=== PATIENT | female | born 1955 | race African-American/Black ===

== ENCOUNTER 2016-07-09 17:57 | Observation (INO) | payer OTHER ==
--- NOTE | ~2016-07-09 | HP ---
Unit #: [id number] #: [id number] Patient: GLORY MAY [id number] [address] [place], [place] [address] [id number] MR#: [id number] NAME: GLORY MAY ROOM: Age: 61 Sex: F Admission Date: 07/09/2016 : 1955 Attending Physician: Krista Dockery M.D. HISTORY AND PHYSICAL CHIEF COMPLAINT Influenza with asthma exacerbation and respiratory failure. HISTORY OF PRESENT ILLNESS This 61-year-old female with hypertension, asthma, and sarcoidosis, is admitted for influenza. The patient was in her usual state of health until two weeks prior to admission when she developed a deep cough productive of some off-white/yellowish sputum with fevers, myalgias, shortness of breath, and mild wheezing. She presented to this emergency department where her influenza swab is positive. She had received influenza vaccine in February. She was noted in the ER to have intermittent low O2 saturations. She was treated with Tylenol, Tamiflu, and potassium in the ER. Although she takes Coumadin, her INR is subtherapeutic. PAST MEDICAL HISTORY 1. Admission March 18, 2016, for bowel obstruction requiring exploratory laparotomy. Patient later developed acute hypoxic respiratory failure and was diagnosed with postop PE and was placed on Coumadin. 2. Hypertension. 3. Asthma. 4. Chronic low back pain. 5. Scoliosis. 6. Degenerative joint disease. 7. Sarcoidosis. 8. Bilateral rotator cuff repair. 9. Left foot surgery. 10. Dilatation and curettage. ALLERGIES PENICILLIN AND NONSTEROIDAL ANTIINFLAMMATORY DRUGS. HOME MEDICATIONS Patient states that she takes Coumadin 7.5 mg daily, aspirin 81 mg 2 tablets daily, and two blood pressure medicines of unknown name. FAMILY HISTORY Hypertension, CAD, diabetes mellitus, and asthma. SOCIAL HISTORY The patient lives alone. She is a lifelong nonsmoker and does not drink alcohol. Unit #: [id number] #: [id number] Patient: GLORY MAY REVIEW OF SYSTEMS Notable for shortness of breath, wheezing, productive cough, myalgias, fever, hypertension, sarcoidosis, chronic back pain, and above-mentioned surgeries. All other systems were reviewed and are otherwise negative. PHYSICAL EXAMINATION GENERAL: A pleasant 61-year-old female currently in no acute distress. VITAL SIGNS: Temperature 100, pulse 83, respirations 15, blood pressure 183/81, and O2 saturation is 99% on room air. HEENT: Eyes PERRLA. Extraocular muscles are intact. Pharynx is benign. NECK: Supple without adenopathy or thyromegaly. CHEST: Mild expiratory wheeze. CARDIAC: Normal S1 and S2 without S3, S4, or murmur. ABDOMEN: Bowel sounds are present. No hepatosplenomegaly, tenderness, or masses. EXTREMITIES: Without clubbing, cyanosis, or edema. Pedal pulses are present. NEUROLOGIC: Patient is awake, alert, and oriented. Cranial nerves are intact. Equal strength throughout. DIAGNOSTIC STUDIES ADMISSION LABORATORY: Hematocrit is 40.4 with normal white count and platelet count. SMA-12 with sodium 133 and potassium is 3. Lactic acid normal. Cardiac markers are negative. Flu serology influenza A positive. IMAGING: Chest x-ray shows chronic interstitial lung disease but no acute disease. CARDIOLOGY: EKG normal sinus rhythm, rate 83, and nonspecific ST wave abnormalities. ASSESSMENT 1. Influenza with asthma exacerbation and acute hypoxic respiratory failure. 2. Hypertension. 3. Postoperative pulmonary embolus February 2016 with subtherapeutic INR. Questionable compliance with Coumadin. 4. Sarcoidosis. 5. Hypokalemia treated in the emergency room. PLANS 1. Tamiflu. 2. Albuterol and mucolytics. 3. Verify home medicines. 1. Dictated by Trini Luz M.D. AML/am TD: 07/09/2016 22:04 JOB #: [id number] CC: Servando Brooke M.D. Unit #: [id number] #: [id number] Patient: GLORY MAY HISTORY AND PHYSICAL Page 1 of 1 X Trini Luz MD HISTORY AND PHYSICAL
--- NOTE | ~2016-07-09 | DS ---
Unit #: [id number] #: [id number] Patient: GLORY JOHNSON [id number] [address] [address] [id number] I MR#: [id number] NAME: GLORY JOHNSON ROOM: 319 Age: 61 Sex: F Admission Date: 07/09/2016 : 1955 Discharge Date: 07/10/2016 Attending Physician: Yoli Woods M.D. DISCHARGE SUMMARY PRIMARY CARE PROVIDER Unknown. PRINCIPAL DIAGNOSES 1. Acute hypoxic respiratory failure secondary to #2. 2. Acute influenza A. 3. Mild acute asthma exacerbation. 4. Hypokalemia. 5. Sarcoidosis. 6. Hypertension. 7. Prior history of pulmonary embolism with subtherapeutic Coumadin. CONSULTANTS None. PROCEDURES 1. CT angiogram of the chest on 07/10/2016, which was negative for PE. Changes of sarcoidosis were noted and reticulonodular infiltrates consistent with influenza noted. 2. Chest x-ray on 07/09/2016 with chronic interstitial lung disease. CLINICAL HISTORY AND HOSPITAL COURSE Ms Johnson is a nice 61-year-old female, who presents to the emergency department with increasing shortness of breath and cough. This is associated with fever, myalgias, and nausea in addition to diarrhea. Please refer to H and P for further details. The patient was found to be influenza positive in the emergency department. Upon presentation, oxygen saturations were normal at 99% on room air. However, during evaluation in the ER, the patient's O2 sats occasionally dropped and that she was placed in observation for evaluation. The patient was started on Tamiflu and today I am awaiting ambulating, oxygen saturations, but she appears comfortable on room air. She does have a mild amount of wheezing and thus I am going to give a dose of Solu-Medrol prior to discharge and quick tapering oral dose of prednisone. I will note that the patient's INR is significantly low at 1.1 and I am question whether she has been compliant with her Coumadin. Her PE was in 02/2016 and she should still be on Coumadin for at least another month, but perhaps will not require it after that timeframe given this appears to be a provoked DVT. We will place her back on her home dose, she needs close followup of her INR. Unit #: [id number] #: [id number] Patient: GLORY JOHNSON DISCHARGE CONDITION Stable. DISCHARGE STATUS Discharged to home. DISCHARGE MEDICATIONS Tamiflu 75 mg p.o. b.i.d. for another 4 days, Medrol Dosepak to be taken as directed #21 pills, albuterol sulfate nebulizer solution q.i.d., Coumadin 7.5 mg which is home dose, Coreg 6.25 mg b.i.d., Humibid LA 600 mg p.o. b.i.d. for 10 days, Lipitor 40 mg at bedtime. DISCHARGE INSTRUCTIONS The patient was instructed to follow regular diet. She can increase her activity as tolerated. FOLLOWUP The patient needs INR done on 07/15/2016 to ensure goal INR 2 to 3. She can follow up with her primary care physician in approximately 1 week as well. Dictated by... Yoli Woods M.D. UMER/samuel TD: 07/11/2016 04:02 JOB #: [id number] DISCHARGE SUMMARY Page 1 of 1 X Yoli Woods MD X DISCHARGE SUMMARY
--- NOTE | ~2016-07-09 | CT16 ---
[facility] A Service of [facility] & [facility] RADIOLOGY TEXT RESULTS PATIENT: GLORY MAY LOCATION: C3A 319-01 : 51 UNIT #: [id number] AGE: [address]: Yoli Woods MD SEX: F ORDER DR: [id number] [facility] [address] [facility]. [place], [place] [address] [id number] I MR#: [id number] Acc #: [id number] NAME: GLORY MAY : 1955 SEX: F STUDY DATE/TIME: 07/10/2016 8:35 UNIT: A PCU ROOM: 319 STUDY DESCRIPTION: CT Angio Chest for PE Attending Physician: Yoli Woods M.D. Ordering Physician: Trini Luz M.D. Primary Care Physician: No Primary Care Physician MEDICAL IMAGING REPORT This report is preliminary unless electronic signature is present EXAM CT chest PE protocol 07/10/2016 INDICATIONS 61-year female with cough, shortness of breath, congestion for 2 weeks. The patient has a history of sarcoidosis. TECHNIQUE CT scan of the chest was performed following the administration of IV contrast using the pulmonary embolism protocol. Coronal and sagittal reformatted images were obtained. This CT exam was performed with one or more of the following radiation dose reduction techniques: automatic exposure control, adjustment of mA and/or kV according to patient size, and iterative reconstruction. COMPARISON STUDIES Compared with CT of the chest from 05/29/2016. FINDINGS There is no evidence of pulmonary embolism. Stable thyroid nodule in the right. Stable mediastinal or hilar adenopathy with calcifications consistent with the patient's history of sarcoidosis. Lung mayo demonstrated improved appearance compared with the prior study. There are decreased ground-glass infiltrates. There is persistent interstitial thickening and some nodularity. This likely reflects sequelae of sarcoidosis given the patient's history. An infectious process could also have this appearance. Stable lingular and right middle lobe scarring. No dense consolidation. Limited imaging of the upper abdomen demonstrates stable cysts in the liver. Stable prominent pancreatic duct. Bone windows demonstrate a sternal fracture again noted. There is some callus formation about the fracture but there is some widening of the fracture line. [facility]. [facility] A Service of [facility] & [facility] RADIOLOGY TEXT RESULTS PATIENT: GLORY MAY LOCATION: C3A 319-01 : 51 UNIT #: [id number] AGE: [address]: Yoli Woods MD SEX: F ORDER DR: IMPRESSION 1. No evidence of pulmonary embolism. 2. Chronic-appearing changes again noted. Stable mediastinal and hilar adenopathy with calcifications compatible patient's history of sarcoidosis. 3. Reticulonodular interstitial thickening in the upper zones again noted likely sequela of sarcoidosis. Infectious process could also have this appearance. Correlate clinically. 4. Previously noted ground-glass infiltrates in the lungs have resolved. Dictated by... Nick Ott M.D. THIS IS AN ELECTRONICALLY VERIFIED REPORT Nick Ott M.D. at 07/11/2016 8:37 AM Arya TD: 07/10/2016 14:47 JOB #: [id number] MEDICAL IMAGING REPORT Page 1 of 1 COPY
--- NOTE | ~2016-07-09 | CR72 ---
[facility] A Service of [facility] RADIOLOGY TEXT RESULTS PATIENT: GLORY MAY LOCATION: [facility] 319-01 : 53 UNIT #: [id number] AGE: [address]: Yoli Woods MD SEX: F ORDER DR: [id number] [facility] [address] [facility]. [place], [place] [address] [id number] I MR#: [id number] Acc #: [id number] NAME: GLORY MAY : 1955 SEX: F STUDY DATE/TIME: 07/09/2016 18:38 UNIT: A U ROOM: 319 STUDY DESCRIPTION: CR Chest Single View Portable Attending Physician: Yoli Woods M.D. Ordering Physician: Krista Dockery M.D. Primary Care Physician: No Primary Care Physician MEDICAL IMAGING REPORT This report is preliminary unless electronic signature is present EXAM Chest x-ray, portable, single view. HISTORY Short of air for 2 weeks with cough, vomiting, history of hypertension. COMMENT Single frontal portable view of the chest timed 18:38 on 07/09/2016 compared to 07/11/2016. There is mild cardiac silhouette enlargement. There is again abnormal thickening of the central peribronchovascular soft tissues and there is abnormal interstitial prominence and distortion of parenchymal markings in general. Changes are chronic. Please correlate for chronic lung disease history. No acute-appearing parenchymal infiltrate acute congestive failure, pleural effusion or pneumothorax. There is evidence for old granulomatous disease also. IMPRESSION Redemonstration of findings most consistent with chronic interstitial lung disease. Please correlate with history. No acute infiltrate or acute congestive failure. Cardiac silhouette is again enlarged. Dictated by... Kirsty Rivas M.D. THIS IS AN ELECTRONICALLY VERIFIED REPORT Kirsty Rivas M.D. at 07/10/2016 12:18 PM SAC/jordon TD: 07/10/2016 10:25 JOB #: [id number] [facility] A Service of [facility] RADIOLOGY TEXT RESULTS PATIENT: GLORY MAY LOCATION: C3A 319-01 : 51 UNIT #: [id number] AGE: [address]: Yoli Woods MD SEX: F ORDER DR: MEDICAL IMAGING REPORT Page 1 of 1 COPY
--- NOTE | ~2016-07-09 | EKG ---
PATIENT: GLORY MAY UNIT #: [id number] Ventricular Rate: 83 BPM Atrial Rate: 83 BPM P-R Interval: 164 ms QRS Duration: 80 ms Q-T Interval: 360 ms QTC Calculation(Bezet): 423 ms P [place]: 57 degrees Calculated R [place]: 41 degrees Calculated T [place]: 33 degrees Diagnosis Line: Sinus rhythm with Premature atrial complexes Diagnosis Line: Nonspecific ST abnormality Baseline wander Diagnosis Line: Abnormal ECG Diagnosis Line: When compared with ECG of 29-MAY-2016 14:57, Diagnosis Line: Premature atrial complexes are now Present Diagnosis Line: Confirmed by CHRISTINE HAGEN MD ([id number]) on 07/11/2016 Diagnosis Line: 9:16:14 AM INTERPRETING MD: [address]
[~2016-07-09 17:57] MED LIST: ASPIRIN81 M2 PO; BACLOFEN10 MG PO; COREG6.25 MG PO; COUMADIN5 MG PO; GABAPENTIN400 M2 PO; HYDROCODON-ACE1 EAC9 PO; LIPITOR40 MG PO; LOVENOX80 MG/0.8 INJ; NITROSTAT0.4 MG SL; NORVASC PO; TRAMADOL HCL50 M2 PO
[2016-07-09 18:29] LABS: BASOPHIL# 0.1 X10e3 (0-0.3); BASOPHIL% 0.9 % (0-2.5); EOSINOPHIL% 0.7 % (0.0-7.0); HEMATOCRIT 40.4 % (35.0-45.0); HEMOGLOBIN 13.4 gm/dL (12.0-16.0); LYMPHOCYTE# 0.7 X10e3 (1.0-3.5); LYMPHOCYTE% 10.9 % (17.0-45.0); MEAN CORPUSCULAR HEMOGLOBIN 31.3 PG (28-34); MEAN CORPUSCULAR HGB CONC 33.3 g/dL (30-36); MEAN PLATELET VOLUME 9.5 FL (6.5-11.5); MONOCYTE# 0.6 X10e3 (0-1.0); MONOCYTE% 9.7 % (3.0-12.0); NEUTROPHIL# 4.9 X10e3 (1.5-7.1); NEUTROPHIL% 77.8 % (40-75); PLATELET COUNT 177 X10e3 (140-420); RED CELL DISTRIBUTION WIDTH 14.2 % (11.0-15.5); WHITE BLOOD COUNT 6.3 X10e3 (4.0-10.5)
[2016-07-09 18:32] LABS: DIFF IND NO
[2016-07-09 18:33] LABS: INFLUENZA A POS (NEG); INFLUENZA B NEG (NEG)
[2016-07-09 18:42] LABS: INR 1.1; PARTIAL THROMBOPLASTIN TIME 25.7 SECONDS (23.5-31.3); PROTHROMBIN TIME (PATIENT) 11.4 SECONDS (9.6-11.5)
[2016-07-09 19:52] LABS: POC - CKMB 1.5 ng/mL (0.0-7.9); POC - TROPONIN <0.05 ng/mL (<=0.05)
[2016-07-09 20:11] LABS: ALBUMIN SERUM 3.6 g/dL (3.5-5.0); ALKALINE PHOSPHATASE 83 U/L (32-92); ALT (SGPT) 13 U/L (10-40); AST (SGOT) 23 U/L (10-42); BILIRUBIN, DIRECT 0.1 mg/dL (0.0-0.2); BILIRUBIN,INDIRECT 0.6 mg/dL (0.0-0.9); BILIRUBIN,TOTAL 0.7 mg/dL (0.2-2.0); BLOOD UREA NITROGEN 16 mg/dL (9-23); BUN/CREATININE RATIO 22.85; CALCIUM SERUM 8.5 mg/dL (8.4-10.2); CARBON DIOXIDE 23 mmol/L (22-31); CHLORIDE 101 mmol/L (100-111); CREATININE SERUM 0.7 mg/dL (0.6-1.4); GLOM FILT RATE Estimated ABOVE60 mL/min (>60); GLUCOSE FASTING 98 mg/dL (70-110); PROTEIN TOTAL SERUM 6.6 g/dL (6.0-8.3); SODIUM 133 mmol/L (135-145)
[2016-07-10] MEDS ORDERED: LIPITOR40 MG PO (02:01)
[2016-07-10] MEDS ORDERED: ALBUTEROL MININEB NEB (02:06)
[2016-07-10] MEDS ORDERED: COREG6.25 MG PO (02:08)
[2016-07-10 06:36] LABS: BASOPHIL# 0.1 X10e3 (0-0.3); EOSINOPHIL# 0.1 X10e3 (0-0.7); EOSINOPHIL% 1.5 % (0.0-7.0); HEMOGLOBIN 13.5 gm/dL (12.0-16.0); LYMPHOCYTE# 0.7 X10e3 (1.0-3.5); LYMPHOCYTE% 13.7 % (17.0-45.0); MEAN CELL VOLUME 93.1 FL (83-96); MEAN CORPUSCULAR HEMOGLOBIN 29.9 PG (28-34); MEAN CORPUSCULAR HGB CONC 32.2 g/dL (30-36); MEAN PLATELET VOLUME 8.7 FL (6.5-11.5); MONOCYTE# 0.5 X10e3 (0-1.0); MONOCYTE% 9.9 % (3.0-12.0); NEUTROPHIL# 3.9 X10e3 (1.5-7.1); NEUTROPHIL% 73.9 % (40-75); PLATELET COUNT 149 X10e3 (140-420); RED BLOOD COUNT 4.51 X10e (3.90-5.30); RED CELL DISTRIBUTION WIDTH 14.2 % (11.0-15.5); WHITE BLOOD COUNT 5.3 X10e3 (4.0-10.5)
[2016-07-10 06:39] LABS: DIFF IND NO
[2016-07-10 06:45] LABS: INR 1.1; PROTHROMBIN TIME (PATIENT) 11.4 SECONDS (9.6-11.5)
[2016-07-10 07:04] LABS: BLOOD UREA NITROGEN 13 mg/dL (9-23); BUN/CREATININE RATIO 14.44; CALCIUM SERUM 8.9 mg/dL (8.4-10.2); CARBON DIOXIDE 25 mmol/L (22-31); CHLORIDE 107 mmol/L (100-111); CREATININE SERUM 0.9 mg/dL (0.6-1.4); GLOM FILT RATE Estimated ABOVE60 mL/min (>60); GLUCOSE FASTING 69 mg/dL (70-110); POTASSIUM 3.7 mmol/L (3.5-5.1); SODIUM 139 mmol/L (135-145)
[2016-07-10] MEDS ORDERED: WARFARIN SODIU7.5 MG PO (13:18)
[2016-07-10] MEDS ORDERED: TAMIFLU75 M1 PO (13:19)
[2016-07-10] MEDS ORDERED: GUAIFENESIN600 M1 PO (13:20)
[2016-07-10] MEDS ORDERED: MEDROL DOSEPAK4 MG PO (13:21)
== END 2016-07-10 14:46 | disposition home or self-care (01) | DRG 193 ==
LOC: CED 17:57 → CEDOF 21:30 → C3A PCU 23:59
PROVIDERS: Emergency Medicine; Internal Medicine
DX: J10.1 Influenza due to other identified influenza virus with other respiratory manifestations (principal); J96.01 Acute respiratory failure with hypoxia; J45.901 Unspecified asthma with (acute) exacerbation; E87.6 Hypokalemia; D86.9 Sarcoidosis, unspecified; I10 Essential (primary) hypertension; Z23 Encounter for immunization; Z86.711 Personal history of pulmonary embolism; Z79.01 Long term (current) use of anticoagulants; Z88.0 Allergy status to penicillin; Z88.6 Allergy status to analgesic agent; Z82.49 Family history of ischemic heart disease and other diseases of the circulatory system; Z83.3 Family history of diabetes mellitus; Z82.5 Family history of asthma and other chronic lower respiratory diseases; Z79.82 Long term (current) use of aspirin
CPT/HCPCS: 36415; 71010; 71275; 80048; 80076; 82553; 83605; 83735; 84484; 85025; 85610; 85730; 87040; 87804; 90732; 93005; 99285; G0009; G0378; Q9967

== ENCOUNTER 2016-09-04 17:18 | Emergency (ER) | payer OTHER ==
[~2016-09-04 17:18] MED LIST changes: +ALBUTEROL MININEB NEB; +GUAIFENESIN600 M1 PO; +MEDROL DOSEPAK4 MG PO; +TAMIFLU75 M1 PO; +WARFARIN SODIU7.5 MG PO
== END 2016-09-04 18:44 | disposition home or self-care (01) ==
LOC: CED 17:18 → CFTX 17:18
DX: S40.811A Abrasion of right upper arm, initial encounter (principal); G89.29 Other chronic pain; I10 Essential (primary) hypertension; E78.5 Hyperlipidemia, unspecified; J45.909 Unspecified asthma, uncomplicated; M54.9 Dorsalgia, unspecified; Z88.0 Allergy status to penicillin; Z88.1 Allergy status to other antibiotic agents; X58.XXXA Exposure to other specified factors, initial encounter; Y92.009 Unspecified place in unspecified non-institutional (private) residence as the place of occurrence of the external cause
CPT/HCPCS: 99283

== ENCOUNTER 2016-10-13 07:45 | Emergency (ER) | payer OTHER ==
--- NOTE | ~2016-10-13 | EKG ---
PATIENT: GLORY MAY UNIT #: [id number] Ventricular Rate: 64 BPM Atrial Rate: 64 BPM P-R Interval: 186 ms QRS Duration: 80 ms Q-T Interval: 450 ms QTC Calculation(Bezet): 464 ms P [place]: 71 degrees Calculated R [place]: 34 degrees Calculated T [place]: 48 degrees Diagnosis Line: Sinus rhythm with Premature atrial complexes Diagnosis Line: Otherwise normal ECG Diagnosis Line: When compared with ECG of 09-JUL-2016 18:07, Diagnosis Line: No significant change was found Diagnosis Line: Confirmed by OKSANA QUEEN MD ([id number]) on Diagnosis Line: 10/13/2016 10:49:13 PM INTERPRETING MD: BERTHA
--- NOTE | ~2016-10-13 | CR72 ---
[facility] A Service of [facility] & [facility] RADIOLOGY TEXT RESULTS PATIENT: GLORY MAY LOCATION: [facility] : 51 UNIT #: [id number] AGE: [address]: Neeraj Silva MD SEX: F ORDER DR: [id number] [facility] [address] [place], [place] [address] [id number] E MR#: [id number] Acc #: [id number] NAME: GLORY MAY : 1955 SEX: F STUDY DATE/TIME: 10/13/2016 8:07 UNIT: [facility] ROOM: STUDY DESCRIPTION: CR Chest Single View Portable Attending Physician: Neeraj Silva M.D. Ordering Physician: Neeraj Silva M.D. Primary Care Physician: No Primary Care Physician MEDICAL IMAGING REPORT This report is preliminary unless electronic signature is present EXAM Portable chest 10/13/2016 HISTORY Cough, chest congestion and shortness of breath for 3 days. Benign essential hypertension, asthma. FINDINGS The heart is enlarged but stable compared with 07/09/2016. There are interstitial infiltrates more prominent at the lung bases probably representing mild pulmonary edema. No airspace consolidation is seen. Small left pleural effusion. No pneumothorax. IMPRESSION Cardiomegaly and mild pulmonary edema. Small left pleural effusion. Dictated by... Jaun Koch M.D. THIS IS AN ELECTRONICALLY VERIFIED REPORT Jaun Koch M.D. at 10/14/2016 8:05 AM DON/maria TD: 10/13/2016 10:08 JOB #: [id number] MEDICAL IMAGING REPORT Page 1 of 1 COPY
[2016-10-13 08:46] LABS: BASOPHIL% 1.1 % (0-2.5); EOSINOPHIL# 0.2 X10e3 (0-0.7); EOSINOPHIL% 5.5 % (0.0-7.0); HEMATOCRIT 36.1 % (35.0-45.0); LYMPHOCYTE% 24.3 % (17.0-45.0); MEAN CELL VOLUME 91.4 FL (83-96); MEAN CORPUSCULAR HEMOGLOBIN 30.4 PG (28-34); MEAN CORPUSCULAR HGB CONC 33.2 g/dL (30-36); MEAN PLATELET VOLUME 9.4 FL (6.5-11.5); MONOCYTE# 0.7 X10e3 (0-1.0); MONOCYTE% 16.1 % (3.0-12.0); NEUTROPHIL# 2.2 X10e3 (1.5-7.1); PLATELET COUNT 160 X10e3 (140-420); RED BLOOD COUNT 3.95 X10e (3.90-5.30); RED CELL DISTRIBUTION WIDTH 13.2 % (11.0-15.5); WHITE BLOOD COUNT 4.2 X10e3 (4.0-10.5)
[2016-10-13 08:51] LABS: DIFF IND NO
[2016-10-13 09:23] LABS: ALBUMIN SERUM 3.5 g/dL (3.5-5.0); ALKALINE PHOSPHATASE 73 U/L (32-92); ALT (SGPT) 16 U/L (10-40); AST (SGOT) 28 U/L (10-42); BILIRUBIN, DIRECT 0.1 mg/dL (0.0-0.2); BILIRUBIN,TOTAL <0.1 mg/dL (0.2-2.0); BLOOD UREA NITROGEN 10 mg/dL (9-23); CALCIUM SERUM 8.7 mg/dL (8.4-10.2); CARBON DIOXIDE 26 mmol/L (22-31); CHLORIDE 109 mmol/L (100-111); CREATININE SERUM 0.8 mg/dL (0.6-1.4); GLUCOSE FASTING 95 mg/dL (70-110); POTASSIUM 3.7 mmol/L (3.5-5.1); PROTEIN TOTAL SERUM 6.4 g/dL (6.0-8.3); SODIUM 142 mmol/L (135-145)
[2016-10-13 09:56] LABS: POC - CKMB 1.7 ng/mL (0.0-7.9); POC - TROPONIN <0.05 ng/mL (<=0.05)
== END 2016-10-13 11:09 | disposition home or self-care (01) ==
LOC: CED 07:45
PROVIDERS: Emergency Medicine
DX: R06.02 Shortness of breath (principal); R06.2 Wheezing; R05 Cough; I11.9 Hypertensive heart disease without heart failure; I51.9 Heart disease, unspecified; E78.5 Hyperlipidemia, unspecified; Z79.01 Long term (current) use of anticoagulants; Z88.8 Allergy status to other drugs, medicaments and biological substances
CPT/HCPCS: 36415; 71010; 80048; 80076; 82553; 83605; 83880; 84484; 85025; 87040; 93005; 94640; 99284